=== PATIENT | female | born 1980 | race Caucasian/White ===

== ENCOUNTER 2017-03-24 18:06 | Emergency (ER) | payer OTHER ==
[~2017-03-24] VITALS: Ht 177.8 cm; Wt 88.2 kg
[~2017-03-24 18:06] MED LIST: CELEXA10 MG PO; DOXYCYCLINE HY100 M3 PO; ESTRACE1 MG PO; GENERLAC10 GM/15 M PO; KLONOPIN0.5 M1 PO; NAPROXEN500 MG PO; NO MEDS; NOHOMEMEDS; PERCOCET 5/31 TABLET PO; PROAIR HFA8.5 GM IH; PYRIDIUM200 MG PO; TYLENOL EXTRA500 MG PO; ZITHROMAX250 MG PO
[2017-03-24] MEDS ORDERED: NAPROSYN500 MG PO (21:47)
[2017-03-24] MEDS ORDERED: ULTRAM50 MG PO (21:47)
[2017-03-24 22:02] VITALS: BP 158/85
== END 2017-03-24 22:03 | disposition home or self-care (01) ==
LOC: EME 18:06
DX: S40.021A Contusion of right upper arm, initial encounter (principal); M25.561 Pain in right knee; W19.XXXA Unspecified fall, initial encounter; I83.93 Asymptomatic varicose veins of bilateral lower extremities; F17.200 Nicotine dependence, unspecified, uncomplicated
CPT/HCPCS: 73060; 73564; 93971; 99281; 99284